=== PATIENT | female | born 1955 | race Caucasian/White ===

== ENCOUNTER 2019-11-06 10:50 | Emergency (ER) | payer MEDICARE, MEDICAID ==
[2019-11-06] MEDS ORDERED: Sodium Chloride 0.9% 10 ML Syringe FLUSH PRN (10:59)
--- NOTE | 2019-11-06 11:14 | EDM.PDOC ---
ED HPI GENERAL MEDICAL PROBLEM - General Stated Complaint: ER Time Seen by Provider: 11/06/19 11:00 Source of Information: Reports: EMS, Detention Records History Limitations: Reports: Altered Mental Status - History of Present Illness INITIAL COMMENTS - FREE TEXT/NARRATIVE: Patient comes emergency department today from the special cares unit at the custodial for evaluation of a fever and change in typical behavior. HPI is primarily obtained and only able to be obtained from the custodial and EMS as the patient is confused chronically. About 1015 this morning the patient had a sudden stiffening of arms and legs and jerking and shaking. Nurses notes reveal that the patient and told him that I do not feel right. She was tachypneic and had a temperature of 101.1 with shaking chills. Blood sugar was 175. She did have 2 falls on 11/03/19. Unsure if she hit her head. Was noticed to be hypoxic with cyanosis sats in the 86% she was put on 4 L nasal cannula. Upon arrival and the patient is answered questions she starts counting numbers. She really does not follow anything to command. Rest of the HPI is unobtainable. - Related Data Allergies Allergy/AdvReac Type Severity Reaction Status Date / Time aspartame Allergy Unknown Cannot Verified 11/06/19 12:31 Remember codeine Allergy Unknown Cannot Verified 11/06/19 12:31 Remember Home Meds: Home Meds Acetaminophen 650 mg PO Q4H PRN MDD 3000 mg in 24 hours 03/29/18 [History] Ascorbate Calcium [Vitamin C] 500 mg PO BID 03/29/18 [History] Aspirin [Halfprin] 81 mg PO DAILY 03/29/18 [History] Butenafine HCl [Lotrimin Ultra] 1 applic TOP Q8H PRN 03/29/18 [History] Calcium Citrate/Vitamin D3 [Eq Calcium Cit 315-Vit D3 250] 1 tab PO BID [History] Carbamide Peroxide [Debrox 6.5% Otic Soln] 8 drop EARBOTH Q28D 03/29/18 [History ] Carbamide Peroxide [Debrox] 2 drop EARBOTH MO@0800 03/29/18 [History] Cholecalciferol (Vitamin D3) [Vitamin D3] 5,000 unit PO DAILY 03/29/18 [History] Docusate Sodium [Colace] 100 mg PO TID 03/29/18 [History] Loratadine 10 mg PO DAILY PRN 03/29/18 [History] Methylcellulose [Fiber] 500 mg PO BID 03/29/18 [History] QUEtiapine [SEROquel] 150 mg PO DAILY 03/29/18 [History] Sertraline [Zoloft] 125 mg PO DAILY 03/29/18 [History] atorvaSTATin [Lipitor] 10 mg PO DAILY 03/29/18 [History] bisacodyL [Bisacodyl] 10 mg PO DAILY PRN 03/29/18 [History] polyethylene glycoL 3350 [MiraLAX] 17 gm PO DAILY 03/29/18 [History] traZODone HCl [Trazodone HCl] 50 mg PO BEDTIME 03/29/18 [History] Cranberry 400 mg PO BID 11/06/19 [History] Insulin Degludec [Tresiba] 14 unit SQ DAILY 11/06/19 [History] Omeprazole 20 mg PO DAILY 11/06/19 [History] metFORMIN HCl [Metformin HCl ER] 1,000 mg PO BID 11/06/19 [History] Past Medical History HEENT History: Reports: Cataract, Glaucoma, Other (See Below) Other HEENT History: vision loss R eye Cardiovascular History: Reports: High Cholesterol Gastrointestinal History: Reports: Chronic Constipation, GERD Genitourinary History: Reports: Other (See Below) Other Genitourinary History: overactive bladder. neuromuscular dysfunction of bladder. incontinent PHYSICIAN/OPHTHALMOLOGIST History: Reports: Musculoskeletal History: Reports: Osteoporosis Neurological History: Reports: Other (See Below) Other Neuro History: unspecified intracranial injury with LOC greater than 24 hrs without return to pre existing conscious level. frontal lobe and executive function deficit Psychiatric History: Reports: Anxiety, Dementia, Depression, Psychosis, Other ( See Below) Other Psychiatric History: mood disorder Endocrine/Metabolic History: Reports: Other (See Below) Other Endocrine/Metabolic History: Type 2 DM Social & Family History - Family History Family Medical History: Noncontributory ED ROS GENERAL - Review of Systems Review Of Systems: Unable To Obtain Reason Not Obtained: worsening confusion from baseline. ED EXAM, GENERAL - Physical Exam Exam: See Below Exam Limited By: Other (This patient is chronically confused and really does not answer much for questions or follow commands on a regular basis. When asked questions about where she hurts she starts counting.) General Appearance: Alert, Mild Distress, Moderate Distress, Obese, Other (She is constantly shaking almost like shaking rigors of her upper and lower extremities. She does not do anything to command although she does do everything spontaneously equal bilaterally.) Eye Exam: Bilateral Eye: EOMI, PERRL Ears: Normal External Exam, Normal TMs. No: Normal Canal (Is bilaterally have cotton balls in them with some type of solution. The canal itself appears to be irritated with some excoriation although does not appear infectious. There is no cerumen in the ear canals. TMs are normal.) Nose: Normal Inspection Throat/Mouth: Normal Gums, Normal Oropharynx, No Airway Compromise. No: Normal Inspection (Other than for dry mucous membranes it is normal inspection of the mouth.) Head: Atraumatic, Normocephalic Neck: Normal Inspection, Supple Respiratory/Chest: Decreased Breath Sounds, Rhonchi (This is bilaterally), Wheezing (Expiratory) Cardiovascular: Normal Peripheral Pulses, Regular Rate, Rhythm, Tachycardia Peripheral Pulses: 2+: Radial (L), Radial (R), Posterior Tibial (L), Posterior Tibial (R), Dorsalis Pedis (L), Dorsalis Pedis (R) GI/Abdominal: Normal Bowel Sounds, Soft (Female) Exam: Deferred Rectal (Female) Exam: Deferred Back Exam: Normal Inspection Extremities: Normal Inspection (Visual inspection of the extremities is appropriate. She does not do anything to command. She moves everything spontaneously equal bilaterally. She has shaking rigors of all of her extremities.), Normal Capillary Refill, Increased Warmth Neurological: Alert, Confused (More Confused than baseline per report) Psychiatric: Anxious Skin Exam: Intact, Diaphoretic, Erythema (generalized flushing. ), Increased Warmth Course - Vital Signs Last Recorded V/S: Last Vital Signs Temp 38.1 C 11/06/19 13:22 Pulse 106 H 11/06/19 13:22 Resp 23 H 11/06/19 13:22 BP 109/52 L 11/06/19 13:22 Pulse Ox 93 L 11/06/19 13:22 - Orders/Labs/Meds Orders: Active Orders 24 hr Category Date Time Status EKG Documentation Completion [RC] STAT Care 11/06/19 11:00 Inactive NPO [Nothing Per Oral Diet] [DIET] Diet 11/06/19 Dinner Active CULTURE BLOOD [BC] Stat Lab 11/06/19 11:38 Received CULTURE BLOOD [BC] Stat Lab 11/06/19 11:45 Received CULTURE URINE [RM] Stat Lab 11/06/19 11:57 Received Sodium Chloride 0.9% [Saline Flush] Med 11/06/19 10:59 Active 10 ml FLUSH ASDIRECTED PRN Blood Culture x2 Reflex Set [OM.PC] Stat Oth 11/06/19 10:59 Ordered Peripheral IV Insertion Adult [OM.PC] Stat Oth 11/06/19 11:00 Ordered Medication Orders Sodium Chloride (Saline Flush) 10 ml FLUSH ASDIRECTED PRN PRN Reason: Keep Vein Open Labs: Laboratory Tests 11/06/19 11/06/19 11/06/19 Range/Units 11:05 11:38 11:38 WBC 2.9 L (4.0-10.0) x10^3/uL RBC 4.73 (4.00-5.50) x10^6/uL Hgb 15.3 D (12.0-16.0) g/dL Hct 45.3 (33.0-47.0) % MCV 95.8 H D (78.0-93.0) fL MCH 32.3 H (26.0-32.0) pg MCHC 33.8 (32.0-36.0) g/dL RDW Coeff of Olivia 14.7 (10.0-15.0) % Plt Count 123 L (130-400) x10^3/uL Neut % (Auto) 81.7 H (50.0-80.0) % Lymph % (Auto) 14.5 L (25.0-50.0) % Yates % (Auto) 0.7 L (2.0-11.0) % Eos % (Auto) 2.4 (0.0-4.0) % Baso % (Auto) 0.7 (0.2-1.2) % Sodium 141 (136-145) mmol/L Potassium 4.2 (3.5-5.1) mmol/L Chloride 103 (98-107) mmol/L Carbon Dioxide 21 (21-32) mmol/L Anion Gap 21.2 H (10-20) mmol/L BUN 23 H (7-18) mg/dL Creatinine 1.4 H (0.55-1.02) mg/dL Est Cr Clr Drug Dosing TNP Estimated GFR (MDRD) 38 Glucose 116 H (74-106) mg/dL Lactic Acid (0.4-2.0) mmol/L Calcium 9.2 (8.5-10.1) mg/dL Corrected Calcium 9.92 (8.5-10.1) mg/dL Total Bilirubin 1.0 (0.2-1.0) mg/dL AST 52 H (15-37) U/L ALT 41 (14-59) U/L Alkaline Phosphatase 188 H (46-116) U/L C-Reactive Protein 10.4 H (<=0.9) mg/dL Total Protein 8.3 H (6.4-8.2) g/dL Albumin 3.1 L (3.4-5.0) g/dL Globulin 5.2 Albumin/Globulin Ratio 0.60 Urine Color (YELLOW) Urine Appearance (CLEAR) Urine pH (5.0-8.0) Ur Specific [place] Urine Protein (NEGATIVE) mg/dL Urine Glucose (UA) (NEGATIVE) mg/dL Urine Ketones (NEGATIVE) mg/dL Urine Occult Blood (NEGATIVE) Urine Nitrite (NEGATIVE) Urine Bilirubin (NEGATIVE) Urine Urobilinogen (0.2) EU/dL Ur Leukocyte Esterase (NEGATIVE) U Hyaline Cast (Auto) Urine RBC (NOT SEEN) /HPF Urine WBC (NOT SEEN) /HPF Ur Squamous Epith Cells (NEGATIVE) /HPF Amorphous Sediment Urine Bacteria (NEGATIVE) /HPF Urine Mucus (NEGATIVE) /LPF SARS-CoV-2 RNA (RT-PCR) Negative (NEGATIVE) 11/06/19 11/06/19 Range/Units 11:38 11:57 WBC (4.0-10.0) x10^3/uL RBC (4.00-5.50) x10^6/uL Hgb (12.0-16.0) g/dL Hct (33.0-47.0) % MCV (78.0-93.0) fL MCH (26.0-32.0) pg MCHC (32.0-36.0) g/dL RDW Coeff of Olivia (10.0-15.0) % Plt Count (130-400) x10^3/uL Neut % (Auto) (50.0-80.0) % Lymph % (Auto) (25.0-50.0) % Yates % (Auto) (2.0-11.0) % Eos % (Auto) (0.0-4.0) % Baso % (Auto) (0.2-1.2) % Sodium (136-145) mmol/L Potassium (3.5-5.1) mmol/L Chloride (98-107) mmol/L Carbon Dioxide (21-32) mmol/L Anion Gap (10-20) mmol/L BUN (7-18) mg/dL Creatinine (0.55-1.02) mg/dL Est Cr Clr Drug Dosing Estimated GFR (MDRD) Glucose (74-106) mg/dL Lactic Acid 4.2 H* (0.4-2.0) mmol/L Calcium (8.5-10.1) mg/dL Corrected Calcium (8.5-10.1) mg/dL Total Bilirubin (0.2-1.0) mg/dL AST (15-37) U/L ALT (14-59) U/L Alkaline Phosphatase (46-116) U/L C-Reactive Protein (<=0.9) mg/dL Total Protein (6.4-8.2) g/dL Albumin (3.4-5.0) g/dL Globulin Albumin/Globulin Ratio Urine Color Yellow (YELLOW) Urine Appearance Turbid H (CLEAR) Urine pH 7.5 (5.0-8.0) Ur Specific [place] 1.015 Urine Protein 30 H (NEGATIVE) mg/dL Urine Glucose (UA) Negative (NEGATIVE) mg/dL Urine Ketones Negative (NEGATIVE) mg/dL Urine Occult Blood Small H (NEGATIVE) Urine Nitrite Positive H (NEGATIVE) Urine Bilirubin Negative (NEGATIVE) Urine Urobilinogen 0.2 (0.2) EU/dL Ur Leukocyte Esterase Large H (NEGATIVE) U Hyaline Cast (Auto) Few Urine RBC 0-5 (NOT SEEN) /HPF Urine WBC 50-75 H (NOT SEEN) /HPF Ur Squamous Epith Cells Moderate H (NEGATIVE) /HPF Amorphous Sediment Many Urine Bacteria Many H (NEGATIVE) /HPF Urine Mucus Few H (NEGATIVE) /LPF SARS-CoV-2 RNA (RT-PCR) (NEGATIVE) Meds: Medications Generic Name Dose Route Start Last Admin Trade Name Freq PRN Reason Stop Dose Admin Sodium Chloride 10 ml 11/06/19 10:59 Saline Flush FLUSH ASDIRECTED PRN Keep Vein Open Discontinued Medications Generic Name Dose Route Start Last Admin Trade Name Fregypsy PRN Reason Stop Dose Admin Acetaminophen 650 mg 11/06/19 11:19 11/06/19 11:55 Tylenol RECTAL 11/06/19 11:20 650 mg NOW ONE Administration Ceftriaxone Sodium 2 gm 11/06/19 11:32 11/06/19 11:38 Rocephin IVPUSH 11/06/19 11:33 2 gm STAT ONE Administration Lactated Ringer's 1,000 mls @ 999 mls/hr 11/06/19 11:07 11/06/19 11:34 Ringers, Lactated IV 11/06/19 12:07 999 mls/hr ONETIME ONE Administration Lactated Ringer's 1,000 mls @ 999 mls/hr 11/06/19 12:15 11/06/19 12:52 Ringers, Lactated IV 11/06/19 13:15 999 mls/hr ONETIME ONE Administration Ondansetron HCl 4 mg 11/06/19 11:26 11/06/19 11:34 Zofran IVPUSH 11/06/19 11:27 4 mg ONETIME ONE Administration - Radiology Interpretation Free Text/Narrative:: No acute process. Of the chest x-ray per radiology. Ventriculoperitoneal shunt. Old Rib fractures. Lungs are clear. Cardiac silhouette unchanged. CT of the head per radiology no definite acute intracranial findings. CT abdomen pelvis per radiology with concerns of the recent kidney stone that was diagnosed on 10-18-19. Though shows no significant change in the position of the left ureteral calculus persistent mild to moderate left-sided hydro-with perinephric fat stranding - Re-Assessments/Exams Free Text/Narrative Re-Assessment/Exam: 11/06/19 11:31 Shortly after arrival the patient started to vomit when on her back and we had to sit her up to keep her airway clear. With this then I question aspiration for her hypoxia as well as her fever. 11/06/19 12:13 Cultures x2 pending. 1 liter LR bolus Rocephin 2 g IV push due to concerns of sepsis. Labs her white blood cell count is approximately 2.9 which is actually down from her baseline of about 7 or 8. Her hemoglobin is quite high at 15 up from her chronic hemoglobin of about 8 making me concerned for concentration and dehydration. CRP 10 2nd liter of fluid wide open and then 200mls/hr. Her blood pressure has responded nicely fever resolving still tachy but improving and tachypnea improving as well. 11/06/19 12:58 I did speak with the patient's primary care provider about admission with a urinary tract infection and acute kidney injury and sepsis without the presence of septic shock. She would like a CT scan of the abdomen to evaluate for recent stone that she had on the left side. Concerning that she has an infected stone from 2 months ago. There is no RBCs in her urine at this time but we will complete the CT scan to ensure that the stone is passed and then plan on admission. 11/06/19 13:00 11/06/19 13:57 The importance of having a primary care provider is highlighted today as this patient still has a stone in her ureter with the present of infection this is most likely an infected kidney stone. I called and spoke with the hospitalist employee relation manager at [facility]. I spoke with Dr. Randle HPI ER COURSE findings and concerns were relayed over the phone. Questions answered and accepted the patient in transfer at this time. Departure - Departure Time of Disposition: 14:02 Disposition: DC/Tfer to Acute Hospital 02 Clinical Impression: Ureteral stone with hydronephrosis, Hypoxia UTI (urinary tract infection) Qualifiers: Urinary tract infection type: site unspecified Hematuria presence: without hematuria Qualified Code(s): N39.0 - Urinary tract infection, site not specified Sepsis Qualifiers: Sepsis type: sepsis due to unspecified organism Sepsis acute organ dysfunction status: with acute organ dysfunction Severe sepsis acute organ dysfunction type : acute renal failure Acute renal failure type: unspecified Severe sepsis shock status: without septic shock Qualified Code(s): A41.9 - Sepsis, unspecified organism Nausea & vomiting Qualifiers: Vomiting type: unspecified Vomiting Intractability: non-intractable Qualified Code(s): R11.2 - Nausea with vomiting, unspecified - Discharge Information Sepsis Event Note (ED) - Focused Exam Vital Signs: Vital Signs Temp Temp Pulse Resp BP Pulse Ox Pulse Ox 11/06/19 12:25 38.2 C H 11/06/19 11:59 38.4 C H 122 H 27 H 107/38 L 94 L 11/06/19 11:55 38.3 C H 11/06/19 11:20 105 H 28 H 98/47 L 94 L 11/06/19 10:55 38.3 C H 108 H 20 78/47 L 93 L 11/06/19 10:50 94 L - My Orders Last 24 Hours: My Active Orders 11/06/19 10:59 Sodium Chloride 0.9% [Saline Flush] 10 ml FLUSH ASDIRECTED PRN Blood Culture x2 Reflex Set [OM.PC] Stat 11/06/19 11:00 EKG Documentation Completion [RC] STAT Peripheral IV Insertion Adult [OM.PC] Stat 11/06/19 11:38 CULTURE BLOOD [BC] Stat 11/06/19 11:45 CULTURE BLOOD [BC] Stat 11/06/19 11:57 CULTURE URINE [RM] Stat 11/06/19 Dinner NPO [Nothing Per Oral Diet] [DIET] - Assessment/Plan Last 24 Hours: My Active Orders 11/06/19 10:59 Sodium Chloride 0.9% [Saline Flush] 10 ml FLUSH ASDIRECTED PRN Blood Culture x2 Reflex Set [OM.PC] Stat 11/06/19 11:00 EKG Documentation Completion [RC] STAT Peripheral IV Insertion Adult [OM.PC] Stat 11/06/19 11:38 CULTURE BLOOD [BC] Stat 11/06/19 11:45 CULTURE BLOOD [BC] Stat 11/06/19 11:57 CULTURE URINE [RM] Stat 11/06/19 Dinner NPO [Nothing Per Oral Diet] [DIET] Assessment:: UTI Sepsis without septic shock ESTER from #2. Ureteral stone with hydro-most likely in the setting of infection. This is an infected retained ureteral stone that has not moved in 2.5 weeks. Nausea vomiting Hypoxia ? aspiration with the recent nausea and vomiting and not protecting her airway as she showed in the ED. Plan: Transfer to [facility] for further care management and workup.
[2019-11-06] MEDS: Lactated Ringers 1,000 ML IV ONE ×2 (11:34→12:52)
[2019-11-06] MEDS: Ondansetron 4 MG/2 ML SDV IVPUSH ONE (11:34)
[2019-11-06] MEDS: cefTRIAXone 2 GM Vial IVPUSH ONE (11:38)
--- NOTE | 2019-11-06 11:47 | CR ---
[id number] RAD/RAD Chest PA or AP 1V EXAM: SINGLE VIEW CHEST. INDICATION: FEVER HYPOXIA COMPARISON: CORRELATION IS MADE WITH MARCH 29, 2018 FINDINGS: The lungs are clear The cardiomediastinal contour is stable Kyphoplasty changes at T12 are identified There are old right rib fractures There is a ventriculoperitoneal shunt Soft tissue calcification of the right infraclavicular region is again identified IMPRESSION: NO ACUTE PROCESS Jacinto Sahu MD 11/06/19 [id number] Thank you for allowing us to participate in the care of your patient.
[2019-11-06] MEDS: Acetaminophen 650 MG Supp RECTAL ONE (11:55)
[2019-11-06 12:09] LABS: SODIUM,NA 141 mmol/L (136-145)
[2019-11-06 12:10] LABS: ANION GAP 21.2 mmol/L (10-20); CHLORIDE,CL 103 mmol/L (98-107)
--- NOTE | 2019-11-06 13:23 | CT ---
[id number] CT/CT Head WO IV EXAM: CT Head WO IV CLINICAL DATA: 2 RECENT FALLS,CHANGES IN LOC CONFUSION. COMPARISON STUDY: None FINDINGS: There is a left ventriculostomy catheter with tip terminating at the frontal horn of the left lateral ventricle. Mild prominence of the ventricular system without definite migel hydrocephalus. Comparison to prior study would be helpful. 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 No intracranial hemorrhage, extra-axial fluid collection, mass, or acute ischemia. Generalized parenchymal atrophy with scattered areas of nonspecific white matter disease, commonly seen as sequela of chronic microvascular ischemia. Soft tissues are unremarkable. Paranasal sinuses and mastoid air cells are clear. IMPRESSION: No definite acute intracranial findings. Kurt Christopher DO 11/06/19 [id number] Thank you for allowing us to participate in the care of your patient.
--- NOTE | 2019-11-06 13:49 | CT ---
[id number] CT/CT Abdomen Pelvis WO IV EXAM: CT Abdomen Pelvis WO IV CLINICAL DATA: RECENT STONE AND HYDRO. NOW UTI PYELO. COMPARISON STUDY: October 18, 2019. FINDINGS: 3 mm calculus in the left ureter where the ureter crosses the iliac vasculature. Mild to moderate upstream hydronephrosis with perinephric fat stranding and renal edema. The amount of fat stranding and hydronephrosis has increased compared to the prior examination Compared to October 18, 2019, no significant change in location of the calculus. No other urinary tract calculi. No bowel obstruction or inflammation. Appendix is normal. Liver, gallbladder, spleen, pancreas, adrenal glands are unremarkable. IMPRESSION: No significant change in position of a left ureteral calculus, located just as the ureter crosses the iliac vasculature. Persistent mild to moderate left-sided hydronephrosis with perinephric fat stranding. Intravenous contrast is needed to evaluate for acute pyelonephritis. Laci Nash MD 11/06/19 2125 Thank you for allowing us to participate in the care of your patient.
[2019-11-06] MEDS: Lactated Ringers 1,000 ML IV SCH (14:33)
== END 2019-11-06 15:08 | disposition short-term general hospital (02) ==
LOC: VM.ED 10:50 → VM.MS 12:34 → UNDOADMIN 12:34 → VM.MS 12:50
DX: A41.9 Sepsis, unspecified organism (principal); R65.20 Severe sepsis without septic shock; N17.9 Acute kidney failure, unspecified; N39.0 Urinary tract infection, site not specified; N13.2 Hydronephrosis with renal and ureteral calculous obstruction; R09.02 Hypoxemia; E11.9 Type 2 diabetes mellitus without complications; E78.00 Pure hypercholesterolemia, unspecified; F41.9 Anxiety disorder, unspecified; F32.9 Major depressive disorder, single episode, unspecified; F03.90 Unspecified dementia, unspecified severity, without behavioral disturbance, psychotic disturbance, mood disturbance, and anxiety; R11.2 Nausea with vomiting, unspecified; K21.9 Gastro-esophageal reflux disease without esophagitis; Z88.5 Allergy status to narcotic agent; Z79.4 Long term (current) use of insulin; Z88.8 Allergy status to other drugs, medicaments and biological substances; Z79.82 Long term (current) use of aspirin; Z79.899 Other long term (current) drug therapy
CPT/HCPCS: 36415; 70450; 71045; 74176; 80053; 81001; 83605; 85025; 86140; 87040; 87077; 87086; 87088; 87186; 94760; 96361; 96374; 96375; 99284; 99285; A9270; J0696; J2405; J7120; U0002